=== PATIENT | female | born 2000 | race Hispanic/Latino ===

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

== ENCOUNTER 2018-05-05 14:55 | Emergency (ER) | payer SELFPAY ==
[2018-05-05] MEDS ORDERED: Ketorolac Tromethamine 30 MG/ML VIAL ONE (15:27)
[2018-05-05] MEDS ORDERED: Diazepam 5 MG TAB ONE (15:28)
--- NOTE | 2018-05-05 16:09 | RAD ---
PA CHEST AND LEFT RIBS FOUR VIEWS: 05/05/18 HISTORY: Trauma to left ribs. Heart size and mediastinum within normal limits. The lungs are clear of any infiltrates. There is no signs of pneumothorax. No rib fractures are identified. IMPRESSION: Unremarkable left ribs. POS: [facility]
[2018-05-05 17:07] LABS: Bilirubin Negative (Negative); Blood, Urine Negative (Negative); Clarity CLOUDY (Clear); Glucose, Urine (Dipstick) Negative (Negative); Leukocyte Negative (Negative); Nitrite Negative (Negative); Protein, Urine (Dipstick) Trace mg/dL (Neg-Trace); Specific Gravity, Urine 1.033 (1.002-1.036); Urobilinogen 0.2 mg/dL (0.2-1.0); pH, Urine 5.5 (5.0-9.0)
== END 2018-05-05 17:31 | disposition home or self-care (01) ==
LOC: ERS 14:55
DX: M54.5 Low back pain (principal); M54.6 Pain in thoracic spine; M25.512 Pain in left shoulder; M54.2 Cervicalgia; E66.9 Obesity, unspecified; V43.52XA Car driver injured in collision with other type car in traffic accident, initial encounter
CPT/HCPCS: 81003; 96372; J1885

== ENCOUNTER 2019-12-19 15:53 | Emergency (ER) | payer SELFPAY | END 2019-12-19 16:45 | disposition home or self-care (01) | LOC: ERS 15:53 | DX: L84 Corns and callosities (principal); I10 Essential (primary) hypertension; E66.9 Obesity, unspecified | CPT/HCPCS: 99281 ==

== ENCOUNTER 2020-12-30 18:57 | Emergency (ER) | payer OTHER, SELFPAY ==
[2020-12-30] MEDS ORDERED: Dexamethasone 10 MG/ML VIAL ONE (21:14)
== END 2020-12-30 21:30 | disposition home or self-care (01) ==
LOC: ERS 18:57
DX: J02.9 Acute pharyngitis, unspecified (principal); E66.9 Obesity, unspecified
CPT/HCPCS: 87081; 87430; 99283; J1100